=== PATIENT | male | born 1930 | race Caucasian/White ===

== ENCOUNTER 2019-03-31 09:11 | Inpatient (IN) ==
[2019-03-31] MEDS ORDERED: Ipratropium/Albuterol Neb 3 ML IH ONE (09:35)
[2019-03-31] MEDS ORDERED: methylPREDNISolone 125 MG/2 ML VIAL IVP ONE (09:35)
--- NOTE | 2019-03-31 09:37 | Emergency Department Note ---
Disposition Clinical Impression: Hypo-osmolality and hyponatremia, Lung mass Dyspnea Qualifiers: Dyspnea type: shortness of breath Qualified Code(s): R06.02 - Shortness of breath Disposition: Admitted As Inpatient Condition: Fair Referrals: Leonid Hernandez DO [Primary Care Provider] - Forms: ED Satisfaction Letter Time of Disposition: 11:55 General Adult HPI - General Chief complaint: ED Upper Respiratory Infection Stated complaint: Cough,Black spot on lung Time Seen by Provider: 03/31/19 09:20 Source: patient, family Mode of arrival: private vehicle Limitations: no limitations Nursing Notes Reviewed: Yes Vital Signs Reviewed: Yes - History of Present Illness HPI Narrative: 80-year-old male with past medical history of cardiac stenting, hypertension with a couple week history of a cough, worsening over the last 3 days with sputum production that is yellow to green to black. Son at bedside reports that he always has a bit of a cough but it seems like its getting worse over the last couple of days. Patient and family were seen at an outside facility yesterday where he had an x-ray and staff there explained that he had a spot on his lawn and they wanted to send him to [place]. Patient refused to be transferred and son is bringing him here this morning for further workup. Patient is denying fevers or chills, he does report a remote history of smoking approximately 40 years ago but none since then. Patient complains of some shortness of breath. He specifically denies chest pain. He is on Plavix due to the stents. Pt denies any recent weight changes, night sweats. Pain Scale: 0 - Related Data Allergies Allergy/AdvReac Type Severity Reaction Status Date / Time No Known Allergies Allergy Verified 03/31/19 09:23 Review of Systems: All systems ED: reviewed and negative except as stated. Constitutional: Denies: fever, chills ENT ED: Denies: ear pain, throat pain Cardiovascular: Denies: chest pain, palpitations Respiratory: Reports: cough, dyspnea, increased sputum production Gastrointestinal: Denies: abdominal pain, nausea, vomiting, diarrhea, constipation Genitourinary: Denies: urgency, dysuria, frequency Musculoskeletal: Denies: back pain, neck pain Integumentary: Denies: rash, abrasion Neurological: Denies: headache, weakness, numbness, paresthesias Psychiatric: Denies: anxiety, depression Endocrine: Denies: fatigue, heat or cold intolerance Hematological/Lymphatic: Denies: easy bleeding, easy bruising Allergic/Immunologic: Denies: facial swelling, urticaria Past Medical History - Past Medical History Attestation: Yes The following information was validated with the patient. Medical history: Reports: coronary artery disease, hyperlipidemia, hypertension, myocardial infarction Psychiatric history: Reports: anxiety - Social History Smoking Status: Former smoker Alcohol use: Reports: none Drug use: Reports: none Physical Exam General: No acute distress. Well developed, well nourished. Head: atraumatic, normocephalic. ENT: No conjunctival injection, no scleral icterus. PERRLA. EOMI. Oropharynx non- erythematous. mucous membranes moist. Neuro: No focal deficits, no speech deficit, no facial droop, mentating well. BUE/BLE Str 5/5. Pulm: Diffuse wheezes, bibasilar rales, ronchi in RLL. Thick, green sputum produced while clinician was in the room, no blood noted. Cardio: Distant heart sounds. Chest not tender to palpation. Abd: Soft, non-distended. Normoactive bowel sounds. Non-tender to palpation. No guarding. Non rigid. Extremities: Radial pulses 2+ mirna, dorsalis pedis/posterior tibialis 2+ mirna. 1+ mirna LE edema. No cyanosis, clubbing. Skin: warm, dry, intact. No rashes. Psych: Appropriate mood and affect. Answers questions appropriately. Cooperative with exam. - General Limitations: no limitations General appearance: alert, in no apparent distress Course Course Narrative: Ddx includes but is not limited to: PNA, Workup will include: CXR, EKG, CBC, BMP, Lactic, Blood cultures, Troponin, breathing treatments. Will request records from OSH. Suspect admit. Vital Signs Temperature 97.9 F 03/31/19 09:19 Pulse Rate 81 03/31/19 09:19 Respiratory Rate 18 03/31/19 09:19 Blood Pressure 103/56 03/31/19 09:19 O2 Sat by Pulse Oximetry 93 03/31/19 09:19 Temperature 97.9 F 03/31/19 09:19 Pulse Rate 90 03/31/19 12:12 Respiratory Rate 18 03/31/19 12:12 Blood Pressure 90/70 03/31/19 12:12 O2 Sat by Pulse Oximetry 95 03/31/19 12:12 Oxygen Delivery Oxygen Delivery Nasal Cannula Medical Decision Making - MDM Narrative Medical decision making narrative: Pts records from OSH show spiculated mass in the lingula with concern for bronchogenic carcinoma along with enhacing lymph nodes concerning for reactivity or metastasis. With hyponatremia and hypoosmolality there is concern for either legionella or SIADH. Pt was saturating in low 90s on room air and is not on oxygen at home. He would benefit from further inpatient workup and treatment. Spoke with family and pt at bedside and shared labs and imaging results. Admitted pt to hospitalist, Dr. Armendariz, who agreed to accept the pt to his service. Patient was given an opportunity to ask questions at bedside and all of their concerns were addressed. Patient verbalized understanding and agreement with plan of care. Pt remained stable while in the department. - Medical Records Medical records reviewed: Yes I reviewed the patient's medical records. - Lab Data Lab results reviewed: Yes I reviewed the patient's lab results. Result diagrams: 03/31/19 09:48 03/31/19 09:48 Lab Results 03/31/19 03/31/19 03/31/19 Range/Units 09:48 09:48 09:48 WBC 9.2 (4.3-11.1) K/mcL RBC 4.61 (4.19-5.50) M/mcL Hgb 14.0 (12.9-16.9) g/dL Hct 40.6 (37.5-50.1) % MCV 88.1 (83.0-100.0) fL MCH 30.4 (28.0-33.3) pg MCHC 34.5 (31.6-35.5) g/dL RDW 13.7 (11.5-14.5) % Plt Count 138 L (140-400) K/mcL MPV 9.6 (9.4-12.4) fL Immature Gran % 0.5 (0-4) % Seg Neutrophils % 75.7 % Lymphocytes % 9.5 % Monocytes % 13.3 % Eosinophils % 0.8 % Basophils % 0.2 % Neutrophils # 7.0 (1.6-8.9) K/mcL Lymphocytes # 0.9 (0.6-4.6) K/mcL Monocytes # 1.2 (0.0-1.3) K/mcL Eosinophils # 0.1 (0.0-0.6) K/mcL Basophils # 0.0 (0.0-0.2) K/mcL Sodium 125 L (136-145) mEq/L Potassium 3.7 (3.5-5.1) mEq/L Chloride 95 L (98-107) mEq/L Carbon Dioxide 22 L (23-29) mEq/L BUN 21 (8-23) mg/dL Creatinine 1.02 (0.70-1.30) mg/dL Est GFR ( Amer) > 60 (> 60) Est GFR (Non-Af Amer) > 60 (> 60) BUN/Creatinine Ratio 21 (6-26) Glucose 112 H (70-105) mg/dL Calculated Osmolality 264 L (280-300) Lactic Acid 1.0 (0.5-2.2) mmol/L Calcium 8.8 (8.6-10.3) mg/dL Troponin I < 0.03 (< 0.04) ng/mL B-Natriuretic Peptide (Less than 100) pg/mL 03/31/19 Range/Units 09:48 WBC (4.3-11.1) K/mcL RBC (4.19-5.50) M/mcL Hgb (12.9-16.9) g/dL Hct (37.5-50.1) % MCV (83.0-100.0) fL MCH (28.0-33.3) pg MCHC (31.6-35.5) g/dL RDW (11.5-14.5) % Plt Count (140-400) K/mcL MPV (9.4-12.4) fL Immature Gran % (0-4) % Seg Neutrophils % % Lymphocytes % % Monocytes % % Eosinophils % % Basophils % % Neutrophils # (1.6-8.9) K/mcL Lymphocytes # (0.6-4.6) K/mcL Monocytes # (0.0-1.3) K/mcL Eosinophils # (0.0-0.6) K/mcL Basophils # (0.0-0.2) K/mcL Sodium (136-145) mEq/L Potassium (3.5-5.1) mEq/L Chloride (98-107) mEq/L Carbon Dioxide (23-29) mEq/L BUN (8-23) mg/dL Creatinine (0.70-1.30) mg/dL Est GFR ( Amer) (> 60) Est GFR (Non-Af Amer) (> 60) BUN/Creatinine Ratio (6-26) Glucose (70-105) mg/dL Calculated Osmolality (280-300) Lactic Acid (0.5-2.2) mmol/L Calcium (8.6-10.3) mg/dL Troponin I (< 0.04) ng/mL B-Natriuretic Peptide 137 H (Less than 100) pg/mL - Radiology Data Radiology results reviewed: Yes I reviewed the patient's radiology results. Chest X-Ray 03/31/19 09:35 IMPRESSION: Low lung volumes with bibasilar airspace opacities, either due to atelectasis or mild/early pneumonia. D/ / Eduardo Villanueva MD / Eduardo Villanueva MD Interpreting Provider: Eduardo Villanueva MD - EKG Data EKG #1 EKG attestation: Yes I reviewed and interpreted this EKG. EKG results narrative: HR 70, rhythm sinus, axis normal. CA 203 and prolonged, QRS 132 and prolonged, QTc 428. No ST elevation. Attestation Statement - Attestation Attestation: I, Mohsen Ellsworth, examined this patient and my medical decision-making was reviewed with the MOTION PICTURE PROJECTIONIST APPRENTICE/PA/Advanced Practice Nurse/Resident Physician. I agree with the documented findings, disposition and treatment plan as described except to the extent set forth below. 88-year-old male presents emergency department for evaluation of cough and "spot on his lungs". Patient states that he was evaluated [facility] yesterday for similar symptoms, he was diagnosed with likely lung cancer after a CT of his chest. He was offered admission at [facility], transferred to [facility], or outpatient follow-up with oncology. Patient left the emergency department and is now back for reevaluation. No history of previous lung cancer. He describes a cough that is productive of yellow-green sputum. Chest x-ray today shows que stion of lung scarring versus early pneumonia. Patient is afebrile. He is hyponatremic. He is unsure if he had fevers over the past few days. We spoke with the oncologist who agreed with the plan for admission to the hospital for biopsy as well as treatment of possible early pneumonia. Will also require further evaluation of his hypernatremia.
[2019-03-31 10:22] LABS: BUN/Creatinine Ratio 21 (6-26); Blood Urea Nitrogen 21 mg/dL (8-23); Calcium 8.8 mg/dL (8.6-10.3); Carbon Dioxide 22 mEq/L (23-29); Chloride 95 mEq/L (98-107); Glucose 112 mg/dL (70-105); Osmolality,Calculated 264 (280-300); Potassium 3.7 mEq/L (3.5-5.1); Sodium 125 mEq/L (136-145); Troponin I < 0.03 ng/mL (< 0.04); eGFR For Non-African Americans > 60 (> 60)
[2019-03-31 10:24] LABS: Basophils % 0.2 %; Eosinophils # 0.1 K/mcL (0.0-0.6); Eosinophils % 0.8 %; Hematocrit 40.6 % (37.5-50.1); Immature Granulocytes % 0.5 % (0-4); Lymphocytes # 0.9 K/mcL (0.6-4.6); Lymphocytes % 9.5 %; Mean Corpuscular HGB Conc 34.5 g/dL (31.6-35.5); Mean Corpuscular Hemoglobin 30.4 pg (28.0-33.3); Mean Corpuscular Volume 88.1 fL (83.0-100.0); Mean Platelet Volume 9.6 fL (9.4-12.4); Monocytes # 1.2 K/mcL (0.0-1.3); Monocytes % 13.3 %; Platelet Count 138 K/mcL (140-400); Red Blood Count 4.61 M/mcL (4.19-5.50); Red Cell Distribution Width 13.7 % (11.5-14.5); Segmented Neutrophils % 75.7 %
[2019-03-31] MEDS ORDERED: Naloxone 0.4 MG/ML INJ IVP PRN (11:52)
[2019-03-31] MEDS: Azithromycin 500 MG in D5% in Water 250 ML IVPB SCH (12:13)
[2019-03-31] MEDS: cefTRIAXone 1,000 MG in Water for inj. (sterile) 20 ML 10 ML IVP SCH (12:13)
--- NOTE | 2019-03-31 12:36 | Internal Med History&Physical ---
Date of Encounter: 03/31/19 Time of Encounter: 12:00 Internal Medicine - H&P: HPI Chief complaint: Coughing for a couple of days History of present illness: Mr. Butterfield is a 88 year old male with pmh of hypertension, coronary artery disease, hyperlipidemia presenting with complaints of persistent coughing with phlegm production of about 3-4 days duration. He denies any sick contacts, just says he has been coughing persistently with no relief. Cough is productive of gr een phlegm. Admits to smoking a long time ago but denies any diagnosis of COPD. He denies any wheezing as well. He denies any fevrs, chills or any other acute symptoms. He went to the ER at [facility] where they did a CT scan reportedly suggestive of a lung mass and pneumonia. Says he was supposed to be transferred to [place] but wanted to come here In the ER,, a chest xray showed early pneumonia and he was started on azithromycin and he is being admitted for further management Past Med Surg Social Fam HX - Past Medical History Medical history: coronary artery disease, hyperlipidemia, hypertension, myocardial infarction Psychiatric history: anxiety - Past Surgical History Additional surgical history: Heart Stents - Social History Smoking Status: Former smoker Alcohol use: none Drug use: none Internal Medicine - H&P: Meds Allergy/AdvReac Type Severity Reaction Status Date / Time No Known Allergies Allergy Verified 03/31/19 09:23 All Systems PM: A 10-system review of systems was performed and is negative for pertinent findings except as documented above in the HPI. - Constitutional Constitutional: no chills, no fever(s), no night sweats - EENT Eyes: no change in vision, no discharge, no pain, no photophobia Ears: no ear discharge, no ear pain, no tinnitus Nose, mouth and throat: no dysphagia, no nasal discharge, no neck pain, no sore throat - Cardiovascular Cardiovascular ROS IM: no chest pain, no diaphoresis, no dyspnea, no lightheadedness, no palpitations, no syncope - Respiratory Respiratory: cough, no dyspnea, no wheezing, no excessive phlegm production - Gastrointestinal Gastrointestinal: no abdominal pain, no diarrhea, no hematemesis, no hematochezia, no melena, no nausea, no vomiting - Musculoskeletal Musculoskeletal ROS IM: no numbness, no tingling - Integumentary Integumentary IM: no rash, no unusual bruising - Neurological Neurological ROS: no confusion, no convulsions, no focal weakness, no numbness, no tingling, no tremor(s) - Hematologic/Lymphatic Hematologic/Lymphatic: no easy bruising - Constitutional Vitals: Temp Pulse Resp BP Pulse Ox 97.9 F 90 18 90/70 95 03/31/19 09:19 03/31/19 12:12 03/31/19 12:12 03/31/19 12:12 03/31/19 12:12 Exam: NAD - Head Head exam: Present: atraumatic, normocephalic - Eye Eye exam: Present: PERRL, conjuntiva pink, sclera anicteric Pupils: Present: PERRL - Neck Neck exam general surgery: Present: supple, trachea midline. Absent: lymphadenopathy - Respiratory Respiratory exam: Present: CTAB. Absent: accessory muscle use, rales, rhonchi, wheezes - Cardiovascular Cardiovascular exam: Present: RRR, +S1, +S2. Absent: diastolic murmur, gallop, rubs, systolic murmur - GI/Abdominal GI/Abdominal exam: Present: normal bowel sounds, soft, no peritoneal signs. Absent: distended, tenderness - Extremities Exam Extremities exam: Present: warm, radial pulses palpable and symmetrical. Absent: calf tenderness, cyanotic, pedal edema - Neurological Exam Neurological exam: Present: CN II-XII intact, oriented X3, no focal deficits. Absent: pronater drift, facial droop, speech deficit - Skin Skin exam: Present: dry, intact Internal Med - H&P Results - Labs CBC & Chem 7: 03/31/19 09:48 03/31/19 09:48 Labs: Short CBC 03/31/19 Range/Units 09:48 WBC 9.2 (4.3-11.1) K/mcL Hgb 14.0 (12.9-16.9) g/dL Hct 40.6 (37.5-50.1) % Plt Count 138 L (140-400) K/mcL Neutrophils # 7.0 (1.6-8.9) K/mcL BMP 03/31/19 09:48 Sodium 125 L Potassium 3.7 Chloride 95 L Carbon Dioxide 22 L BUN 21 Creatinine 1.02 Glucose 112 H Calcium 8.8 Cardiac Enzymes 03/31/19 Range/Units 09:48 Troponin I < 0.03 (< 0.04) ng/mL - Impressions ITS Impressions Chest X-Ray 03/31/19 09:35 IMPRESSION: Low lung volumes with bibasilar airspace opacities, either due to atelectasis or mild/early pneumonia. D/ / Eduardo Villanueva MD / Eduardo Villanueva MD Interpreting Provider: Eduardo Villanueva MD - Assessment and Plan (1) Community acquired pneumonia Current Visit: Yes Status: Acute Assessment and plan: Pt comes in with coughing productive of green phlegm, no discernible wheezes and cxr suggestive of pneumonia Also hyponatremic. denies any exposure to hot tubs. Will obtain blood cultures, urine legionella and streptooccal antigen Start on ceftriaxone and azithromycin Qualifiers: Qualified Code(s): J18.9 - Pneumonia, unspecified organism (2) Hypo-osmolality and hyponatremia Current Visit: Yes Status: Acute Assessment and plan: Possibly secondary to pneumonia vs dehydration vs lung mass CT chest from [facility] showed lung mass, legionella pneumonia is also a possiblilty Start on normal saline and monitor BMP (3) Lung mass Current Visit: Yes Status: Acute Assessment and plan: Possible etiology for coughing and hyponatremia. Obtain urine studies Oncology consulted from ER (4) Coronary artery disease Current Visit: Yes Status: Acute Assessment and plan: Continue plavix and statin Qualifiers: Qualified Code(s): I25.10 - Atherosclerotic heart disease of [place] coronary artery without angina pectoris (5) Hypertension Current Visit: Yes Status: Acute Assessment and plan: Borderline hypotensive. Hold BP meds Qualifiers: Qualified Code(s): I10 - Essential (primary) hypertension (6) DVT prophylaxis Current Visit: Yes Status: Acute Assessment and plan: heparin sc - Time Spent With Patient Total time spent is greater than 50% in coordination of care (as documented) at patient's floor/unit and/or counseling patient:
[2019-03-31] MEDS ORDERED: GuaiFENesin Liq 200 MG/10 ML UDC PO PRN (12:39)
--- NOTE | 2019-03-31 14:55 | Oncology Inp Consult Note ---
<Mamie King L - Last Filed: 03/31/19 16:17> Date of Encounter: 03/31/19 Time of Encounter: 14:30 Assessment and Plan (1) Hypo-osmolality and hyponatremia Status: Acute Assessment and plan: Secondary to chlorthalidone (listed on home meds) vs. hypovolemic hyponatremia vs. SIADH vs. other or multifactorial Appears somewhat chronic dating back to labs from 2014 Renal function/glucose normal Plan: Awaiting Urine Na and Urine osm Added TSH IVF ordered If he has labs concerning for SIADH would recommend fluid restriction, awaiting results (2) Lung mass Status: Acute Assessment and plan: CT of the chest without contrast at [facility] revealed 1.5 cm spiculated mass laterally within the lingula and several subcentimeter mediastinal lymph nodes in addition to a 1.1 x 1.6 cm subcarinal lymph node. Plan: Hold Plavix in anticipation for biopsy-plavix will need to be held x5 days (last dose 03/30/2019), patient would not necessarily need to be inpatient while awaiting on biopsy, will discuss with Dr. Espinal/Pulmonology and may help to arrange for outpatient bx once symptoms controlled and dependent upon hospital course [facility] CT chest/abdomen/pelvis with IV contrast (3) DVT prophylaxis Status: Acute Assessment and plan: Heparin SQ - Data of Consult Patient: new to practice Consult date: 03/31/19 Requesting Physician: Olivia Sosa Primary Care Provider: Leonid Hernandez - Consult Narrative Reason for consult: Spiculated lingular mass History of present illness: Mr. Butterfield is an 88 year old male with past medical history significant for hypertension, coronary artery disease, [place] x20 years ago, coronary stent placement ~4-5 years ago, hyperlipidemia who presented for persistent productive cough for 3-4 days. He presented to [place] ER yesterday and CT of the chest without contrast revealed 1.5 cm spiculated mass laterally within the lingula and several subcentimeter mediastinal lymph nodes in addition to a 1.1 x 1.6 cm subcarinal lymph node. They recommended transfer to [facility] for further workup vs. outpatient workup and he declined transfer. Patient presents to ER today for further evaluation. Patient states he has had persistent cough with green phlegm. He looks to his son for the answer of most questions. Patient does endorse chronic SOB, patients son states he has noticed patient become increasingly SOB above baseline. He is wearing O2 nasal cannula and does not require O2 at home. He denies hemoptysis, fevers/chills, headache, dizziness, visual changes, chest pain or pain with inspiration, abdominal pain, nausea, vomiting, bowel habit changes, back pain or focal weakness. Chronic difficulty with urination that is unchanged. He reports increase in generalized weakness and decreased activity. He lives in [place] with his son. He is a retired semi-driver trainer. Quit smoking 40 years ago, he had smoked for ~30 years average of 1 PPD. Denies weight loss or appetite changes. Past Med Surg Social Fam HX - Past Medical History Medical history: coronary artery disease, hyperlipidemia, hypertension, myocardial infarction Psychiatric history: anxiety - Past Surgical History Additional surgical history: Heart Stents - Social History Smoking Status: Former smoker Alcohol use: none Drug use: none Medications and Allergies Atorvastatin [Lipitor] 40 mg PO QPM 03/31/19 [History] Chlorthalidone 25 mg PO DAILY 03/31/19 [History] Clopidogrel [Plavix] 75 mg PO DAILY 03/31/19 [History] Finasteride [Proscar] 5 mg PO DAILY 03/31/19 [History] Isosorbide MONOnitrate (24 HR) [Imdur] 30 mg PO QAM 03/31/19 [History] LORazepam [Ativan] 1 mg PO BID PRN 03/31/19 [History] Levothyroxine Sodium 88 mcg PO QAM 03/31/19 [History] Lisinopril [Zestril] 5 mg PO DAILY 03/31/19 [History] Metoprolol Succinate [Toprol Xl] 12.5 mg PO DAILY 03/31/19 [History] Mirtazapine [Remeron] 15 mg PO DAILY 03/31/19 [History] Tamsulosin [Flomax] 0.4 mg PO DAILY 03/31/19 [History] Allergy/AdvReac Type Severity Reaction Status Date / Time No Known Allergies Allergy Verified 03/31/19 14:13 Constitutional: Present: fatigue. Absent: anorexia, chills, fever(s), frequent falls, headache(s), night sweats, weakness, weight loss Eyes: Absent: blurry vision, change in vision Nose, mouth and throat: Absent: dysphagia, odynophagia Cardiovascular: Absent: chest pain Respiratory: Present: cough, dyspnea. Absent: hemoptysis, wheezing, pain on inspiration, pain with cough Gastrointestinal: Absent: abdominal pain, change in bowel habits, hematochezia, melena, nausea, vomiting Genitourinary: Present: as per HPI, dysuria, urinary hesitancy Musculoskeletal: Present: muscle weakness Integumentary: Absent: rash, wounds Neurological: Absent: dizziness, focal weakness Psychiatric: Present: as per HPI Hematologic/Lymphatic: Present: as per HPI Oncology - Exam - Constitutional General appearance: average body habitus, cooperative, no acute distress, no febrile - Head Head exam: Present: atraumatic - ENT ENT exam: Present: mucous membranes moist, normal oropharynx - Respiratory Respiratory exam: Present: decreased breath sounds. Absent: respiratory distress - Cardiovascular Cardiovascular exam: Present: RRR - GI/Abdominal GI/Abdominal exam: Present: normal bowel sounds, soft. Absent: tenderness - Extremities Exam Extremities exam: Present: normal inspection. Absent: calf tenderness - Neurological Exam Neurological exam: Present: alert, oriented X3, no focal deficits, strengths eq ual and symetr throughout - Psychiatric Psychiatric exam: Present: normal affect, normal mood - Skin Skin exam: Present: dry, intact, normal color, warm Consult Discharge Plan - Plan Referrals: Leonid Hernandez DO [Primary Care Provider] - Inpatient Charges Provider: Dr. Yanick Almanzar <Madelin Almanzar - Last Filed: 03/31/19 17:06> Date of Encounter: 03/31/19 - Data of Consult Requesting Physician: Olivia Sosa Primary Care Provider: Leonid Hernandez - Attending Attestation Patient with hx of wt loss, cough (4 wks), generalized wkness, cr constipation, imaging completed outside showed spiculated lung nodule, mediastinal adenopathy, worrisome for malignancy. Labs significant for hyponatremia/?SIADH. Work up in progress. Will obtain contrasted imaging chest/abdpelvis. Biopsy to be arranged after imaging-patient is on plavix currently. Plan reviewed with patient and son bedside I examined this patient and my medical decision-making was reviewed with the Advanced Practice Nurse, Mamie King. I agree with the documented findings, disposition and treatment plan as described except to the extent set forth below. Inpatient Charges Provider: Dr. Yanick Almanzar Consult - Inpatient: [id number]
[2019-03-31] MEDS ORDERED: Isovue-370 500 ML BOTTLE IVP ONE (15:50)
[2019-03-31] MEDS: *HR* Heparin 5,000 UNIT/ML VIAL SQ SCH (16:56)
[2019-03-31 23:16] LABS: Bilirubin,Urine Negative (Negative); Blood,Urine Negative (Negative); Clarity,Urine Clear (Clear); Color,Urine Yellow (Yellow); Glucose,Urine (UA) 100 mg/dL (Normal); Ketones,Urine Negative (Negative); Leukocyte Esterase,Urine Negative (Negative); Nitrite,Urine Negative (Negative); Protein,Urine Negative (Neg-Trace); Specific Gravity,Urine 1.024 (1.010-1.025); Urobilinogen,Urine Normal (Normal)
[2019-04-01] MEDS: *HR* Heparin 5,000 UNIT/ML VIAL SQ SCH ×2 (05:52→18:12)
[2019-04-01 06:31] LABS: Basophils % 0.2 %; Hematocrit 46.7 % (37.5-50.1); Immature Granulocytes % 0.5 % (0-4); Lymphocytes # 0.8 K/mcL (0.6-4.6); Lymphocytes % 5.3 %; Mean Corpuscular HGB Conc 34.5 g/dL (31.6-35.5); Mean Corpuscular Hemoglobin 30.7 pg (28.0-33.3); Mean Corpuscular Volume 89.1 fL (83.0-100.0); Mean Platelet Volume 10.2 fL (9.4-12.4); Monocytes % 6.4 %; Platelet Count 182 K/mcL (140-400); Red Blood Count 5.24 M/mcL (4.19-5.50); Red Cell Distribution Width 13.7 % (11.5-14.5); Segmented Neutrophils % 87.6 %
[2019-04-01 06:46] LABS: Hemoglobin 16.1 g/dL (12.9-16.9); Neutrophils # 13.6 K/mcL (1.6-8.9)
[2019-04-01 08:29] LABS: BUN/Creatinine Ratio 24 (6-26); Blood Urea Nitrogen 21 mg/dL (8-23); Calcium 9.2 mg/dL (8.6-10.3); Carbon Dioxide 21 mEq/L (23-29); Chloride 93 mEq/L (98-107); Glucose 117 mg/dL (70-105); Magnesium 1.9 mg/dL (1.6-2.6); Osmolality,Calculated 266 (280-300); Phosphorous 3.1 mg/dL (2.7-4.5); Potassium 3.8 mEq/L (3.5-5.1); Sodium 126 mEq/L (136-145); eGFR For Non-African Americans > 60 (> 60)
[2019-04-01] MEDS: cefTRIAXone 1,000 MG in Water for inj. (sterile) 20 ML 10 ML IVP SCH (09:54)
--- NOTE | 2019-04-01 11:29 | Electrocardiograph Report ---
[address] [address] Test Date: 2019-03-31 Pat Name: Odilon Butterfield Department: EXAM9 Room: 2NE26 Gender: M Roof Service Technician: : 1930 Requested By: Leah Arrieta Order Number: [id number] Reading MD: Leonid Henderson Measurements Intervals Sinclair Rate: 70 P: 54 PA: 203 QRS: 17 QRSD: 132 T: -24 QT: 396 QTc: 428 Interpretive Statements Sinus rhythm ivcd Electronically Signed On 04-01-2019 11:27:39 EDT by Leonid Henderson
[2019-04-01] MEDS: Azithromycin 500 MG in D5% in Water 250 ML IVPB SCH (13:02)
--- NOTE | 2019-04-01 14:23 | Oncology Inp Progress Note ---
Date of Encounter: 04/01/19 Time of Encounter: 13:45 (1) Hypo-osmolality and hyponatremia Current Visit: Yes Status: Acute Assessment and plan: Secondary to chlorthalidone (listed on home meds) vs. hypovolemic hyponatremia vs. SIADH vs. other or multifactorial Appears somewhat chronic dating back to labs from 2014 Renal function/glucose/TSH normal Plan: Na 126 today (125 yesterday) Check AM cortisol Following NS ordered per hospitalist If he has labs concerning for SIADH would recommend fluid restriction, awaiting results (2) Lung mass Current Visit: Yes Status: Acute Assessment and plan: CT of the chest without contrast at [place] revealed 1.5 cm spiculated mass laterally within the lingula and several subcentimeter mediastinal lymph nodes in addition to a 1.1 x 1.6 cm subcarinal lymph node. CT of the chest/abdomen/pelvis with IV contrast reveals Spiculated 18 mm nodule lingula left upper lobe almost certainly reflects primary bronchogenic carcinoma. Plan: Hold Plavix in anticipation for biopsy-plavix will need to be held x5 days for bronchoscopy with LN/lung biopsy (last dose 03/30/2019), patient would not necessarily need to be inpatient while awaiting on biopsy, will discuss with Dr. Espinal/Pulmonology and may help to arrange for outpatient bx once symptoms controlled and dependent upon hospital course Patient will need outpatient appointments arranged (3) DVT prophylaxis Current Visit: Yes Status: Acute Assessment and plan: Heparin SQ Oncology: Subj Interval history: Patient getting OOB with assistance to bathroom. Denies pain. Cough and SOB somewhat improved. continues to feel weak overall. Afebrile. O2 saturations adequate on room air. 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 Started colace for chronic constipation. - Constitutional General appearance: cooperative, no acute distress, no febrile - Head Head exam: Present: atraumatic - ENT ENT exam: Present: mucous membranes moist, normal oropharynx - Respiratory Respiratory exam: Present: decreased breath sounds. Absent: respiratory distress - Cardiovascular Cardiovascular exam: Present: RRR - GI/Abdominal GI/Abdominal exam: Present: normal bowel sounds, soft. Absent: tenderness - Extremities Exam Extremities exam: Present: normal inspection. Absent: calf tenderness - Neurological Exam Neurological exam: Present: alert, oriented X3, no focal deficits, strengths equal and symetr throughout - Psychiatric Psychiatric exam: Present: normal affect, normal mood - Skin Skin exam: Present: dry, intact, normal color, warm Oncology: Obj Data - Labs CBC & Chem 7: 04/01/19 05:39 04/01/19 05:39 Consult Discharge Plan - Plan Referrals: Leonid Hernandez DO [Primary Care Provider] - Inpatient Charges Provider: Mamie Seth CNP Follow up - Inpatient: [id number]
--- NOTE | 2019-04-01 15:55 | Internal Med Progress Note ---
Hospitalist Progress Note - Encounter Date of Encounter: 04/01/19 Time of Encounter: 15:51 - Subjective Interval History: Pt denies chest pain or SOB. He does report having some RUQ pain only when he coughs. He denies fever, chills, N/V or diarrhea. - Exam Vitals: Temp Pulse Resp BP Pulse Ox 97.6 F 75 14 106/62 94 04/01/19 11:01 04/01/19 11:01 04/01/19 11:01 04/01/19 11:01 04/01/19 11:01 Exam: Exam: NAD Head exam: Present: atraumatic, normocephalic Eye exam: Present: PERRL, conjuntiva pink, sclera anicteric Pupils: Present: PERRLA Neck exam general surgery: Present: supple, trachea midline. Absent: lymphadenopathy Respiratory exam: Present: CTAB. Absent: accessory muscle use, rales, rhonchi, wheezes Cardiovascular exam: Present: RRR, +S1, +S2. Absent: diastolic murmur, gallop, rubs, systolic murmur GI/Abdominal exam: Present: normal bowel sounds, soft, no peritoneal signs. Absent: distended, tenderness Extremities exam: Present: warm, radial pulses palpable and symmetrical. Absent: calf tenderness, cyanotic, pedal edema Neurological exam: Present: CN II-XII intact, oriented X3, no focal deficits. Absent: pronater drift, facial droop, speech deficit Skin exam: Present: dry, intact - Assessment and Plan (1) Community acquired pneumonia Current Visit: Yes Status: Acute Assessment and Plan: Pt comes in with coughing productive of green phlegm, no discernible wheezes and cxr suggestive of pneumonia Also hyponatremic. denies any exposure to hot tubs. Will obtain blood cultures, urine legionella and streptooccal antigen Continue on ceftriaxone and azithromycin (2) Lung mass Current Visit: Yes Status: Acute Assessment and Plan: Possible etiology for coughing and hyponatremia. Na studies Oncology consulting, and states bx can be done out pt (3) Hypo-osmolality and hyponatremia Current Visit: Yes Status: Acute Assessment and Plan: Possibly secondary to pneumonia vs dehydration vs lung mass CT chest from [facility] showed lung mass, legionella pneumonia is also a possiblilty On Zithromax and Rocephin. Will check sodium studies. (4) Coronary artery disease Current Visit: Yes Status: Acute Assessment and Plan: Continue plavix and statin (5) Hypertension Current Visit: Yes Status: Acute Assessment and Plan: Borderline hypotensive on admission so holding home dose metoprolol and imdur. Hold BP meds DVT Prophylaxis: heparin sc - Time Spent with Patient Total time spent is greater than 50% in coordination of care (as documented) at patient's floor/unit and/or counseling patient: less than 15 minutes Plan of Care Discussed with: patient Internal Medicine: Result - Labs CBC & Chem 7: 04/01/19 05:39 04/01/19 05:39 Labs: Short CBC 04/01/19 Range/Units 05:39 WBC 15.5 H D (4.3-11.1) K/mcL Hgb 16.1 D (12.9-16.9) g/dL Hct 46.7 (37.5-50.1) % Plt Count 182 (140-400) K/mcL Neutrophils # 13.6 H (1.6-8.9) K/mcL BMP 04/01/19 05:39 Sodium 126 L Potassium 3.8 Chloride 93 L Carbon Dioxide 21 L BUN 21 Creatinine 0.88 Glucose 117 H Calcium 9.2 Urine 03/31/19 Range/Units 22:27 Urine Color Yellow (Yellow) Urine Clarity Clear (Clear) Urine pH 6.0 (5.0-8.0) pH Units Ur Specific [place] 1.024 (1.010-1.025) Urine Protein Negative (Neg-Trace) mg/dL Urine Glucose (UA) 100 H (Normal) mg/dL - Impressions Impressions Abdomen/Pelvis CT 03/31/19 15:50 IMPRESSION: 1. Spiculated 18 mm nodule lingula left upper lobe almost certainly reflects primary bronchogenic carcinoma. Percutaneous biopsy versus PET-CT correlation recommended. 2. Emphysema. 3. Chronic pulmonary scarring with areas of bronchiectasis right posterior parahilar lung and both lung bases, right greater than left. 4. 3.3 cm AAA -- recommend follow-up every 3 years. {Reference: J Vasc Surg 2009 Oct;50(4 Suppl):S2-49.} 5. Calcific atherosclerosis aorta. 6. Diverticulosis coli without CT evidence of acute diverticulitis. D/ / Xu Ruiz / Xu Ruiz Interpreting Provider: Xu Ruiz Chest CT 03/31/19 15:50 IMPRESSION: 1. Spiculated 18 mm nodule lingula left upper lobe almost certainly reflects primary bronchogenic carcinoma. Percutaneous biopsy versus PET-CT correlation recommended. 2. Emphysema. 3. Chronic pulmonary scarring with areas of bronchiectasis right posterior parahilar lung and both lung bases, right greater than left. 4. 3.3 cm AAA -- recommend follow-up every 3 years. {Reference: J Vasc Surg 2009 Aug;50(4 Suppl):S2-49.} 5. Calcific atherosclerosis aorta. 6. Diverticulosis coli without CT evidence of acute diverticulitis. D/ / Xu Ruiz / Xu Ruiz Interpreting Provider: Xu Ruiz Consult Discharge Plan - Plan Referrals: Leonid Hernandez DO [Primary Care Provider] - _ (1) Community acquired pneumonia Qualifiers: Qualified Code(s): J18.9 - Pneumonia, unspecified organism (4) Coronary artery disease Qualifiers: Qualified Code(s): I25.10 - Atherosclerotic heart disease of [place] coronary artery without angina pectoris (5) Hypertension Qualifiers: Qualified Code(s): I10 - Essential (primary) hypertension
[2019-04-02] MEDS: *HR* Heparin 5,000 UNIT/ML VIAL SQ SCH (06:39)
[2019-04-02] MEDS: cefTRIAXone 1,000 MG in Water for inj. (sterile) 20 ML 10 ML IVP SCH (09:21)
[2019-04-02] MEDS: Azithromycin 500 MG in D5% in Water 250 ML IVPB SCH (12:17)
--- NOTE | 2019-04-02 13:20 | Internal Med Progress Note ---
Hospitalist Progress Note - Encounter Date of Encounter: 04/02/19 Time of Encounter: 13:20 - Exam Vitals: Temp Pulse Resp BP Pulse Ox 98.1 F 89 16 103/62 95 04/02/19 11:05 04/02/19 11:05 04/02/19 11:05 04/02/19 11:05 04/02/19 08:03 - Assessment and Plan (1) Hypo-osmolality and hyponatremia Current Visit: Yes Status: Acute (2) Lung mass Current Visit: Yes Status: Acute (3) Community acquired pneumonia Current Visit: Yes Status: Acute (4) Coronary artery disease Current Visit: Yes Status: Acute (5) Hypertension Current Visit: Yes Status: Acute - Time Spent with Patient Total time spent is greater than 50% in coordination of care (as documented) at patient's floor/unit and/or counseling patient: Internal Medicine: Result - Labs CBC & Chem 7: 04/01/19 05:39 04/02/19 04:18 Labs: BMP 04/02/19 04:18 Sodium 130 L Consult Discharge Plan - Plan Referrals: Leonid Hernandez DO [Primary Care Provider] - (3) Community acquired pneumonia Qualifiers: Qualified Code(s): J18.9 - Pneumonia, unspecified organism (4) Coronary artery disease Qualifiers: Qualified Code(s): I25.10 - Atherosclerotic heart disease of [place] coronary artery without angina pectoris (5) Hypertension Qualifiers: Qualified Code(s): I10 - Essential (primary) hypertension
[2019-04-02 15:05] VITALS: BP 110/62
--- NOTE | 2019-04-02 16:36 | Discharge Summary ---
- NOTES TO OUTPATIENT PROVIDER Notes to Outpatient Provider: Will need follow-up with oncology for possible biopsy within one week possibly on Friday. Discussed with patient about fluid restriction of 1.5-2 L a day and also discuss to hold Plavix until biopsy. I asked to hold antihypertensive medication until PCP follow-up within one week and will need f/u BMP. Orders not resulted at time of discharge: Pending orders 03/31/19 13:08 Culture,Blood [BC] Routine 04/01/19 16:16 Mycoplasma pneumoniae IgG IgM Routine 04/02/19 04:00 Osmolality,Urine [UCHEM] AM 0400 Sodium, Urine [UCHEM] AM 0400 Date of Encounter: 04/02/19 Time of Encounter: 16:31 - Discharge Diagnosis (1) Hypo-osmolality and hyponatremia Priority: Primary Status: Acute (2) Lung mass Priority: Primary Status: Acute (3) Community acquired pneumonia Priority: Primary Status: Acute Qualifiers: Qualified Code(s): J18.9 - Pneumonia, unspecified organism (4) Coronary artery disease Priority: Secondary Status: Acute Qualifiers: Qualified Code(s): I25.10 - Atherosclerotic heart disease of [place] coronary artery without angina pectoris (5) Hypertension Priority: Secondary Status: Acute Qualifiers: Qualified Code(s): I10 - Essential (primary) hypertension (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 Butterfield is a 88 year old male with PMHx of HTN, CAD, HLD came with cough and sputum production found to have community acquired pneumonia on CXR. Patient also had CT chest which showed lung mass and also had hyponatremia. Patient urine osmolality was elevated indicating SIADH. Patient had oncology evaluation and was arranged to have biopsy after off of plavix for 5 days. He is otherwise stable to be discharge to finish outpatient antibiotic and f/u for lung biopsy via oncology. He is ask to restrict fluid intake to 1.5-2 L. His antihypertensives and plavix will be held as well till PCP follow up. Patient is awaiting f/u discussion with oncology today after which he will be discharged. Discharge discussed with: patient, family, nurse, managing consultant - Time Spent with Patient Total time spent providing and/or coordinating discharge services: Time spent: Greater than 30 minutes (40) - Discharge Medications Prescriptions: New Amoxicillin/Clavulanate [Augmentin] 875 mg PO BIDWM 2 Days #4 tablet Continued Tamsulosin [Flomax] 0.4 mg PO DAILY Mirtazapine [Remeron] 15 mg PO DAILY Metoprolol Succinate [Toprol Xl] 12.5 mg PO DAILY LORazepam [Ativan] 1 mg PO BID PRN PRN Reason: Anxiety Levothyroxine Sodium 88 mcg PO QAM Finasteride [Proscar] 5 mg PO DAILY Atorvastatin [Lipitor] 40 mg PO QPM Discontinued Lisinopril [Zestril] 5 mg PO DAILY Isosorbide MONOnitrate (24 HR) [Imdur] 30 mg PO QAM Clopidogrel [Plavix] 75 mg PO DAILY Chlorthalidone 25 mg PO DAILY Home Medications: Atorvastatin [Lipitor] 40 mg PO QPM 03/31/19 [History] Finasteride [Proscar] 5 mg PO DAILY 03/31/19 [History] LORazepam [Ativan] 1 mg PO BID PRN 03/31/19 [History] Levothyroxine Sodium 88 mcg PO QAM 03/31/19 [History] Metoprolol Succinate [Toprol Xl] 12.5 mg PO DAILY 03/31/19 [History] Mirtazapine [Remeron] 15 mg PO DAILY 03/31/19 [History] Tamsulosin [Flomax] 0.4 mg PO DAILY 03/31/19 [History] Amoxicillin/Clavulanate [Augmentin] 875 mg PO BIDWM 2 Days #4 tablet 04/02/19 [Rx] Allergies/Adverse Reactions: Allergy/AdvReac Type Severity Reaction Status Date / Time No Known Allergies Allergy Verified 03/31/19 14:13 Date of admission: 03/31/19 14:27 Primary care physician: Leonid Hernandez Consults: 03/31/19 11:34 Consult to Oncology [CONS] Stat Consulting Provider: [facility] Reason for Consult: Spiculated mass found on CT, cough, hyponatremia, hypoosmolality. Spoke with Mamie Seth. Time Notified: 11:35 Call Completed: Yes 04/01/19 15:54 Consult to Physical Therapy [CONS] Routine Comment: Evaluate, develop and implement POC Reason for Consult: Assess for ability to return home vs rehab Does patient have active BEDREST order?: No Is patient medically & hemodynamically stable?: Yes Discharging clinician: Jim Preston - Constitutional Vitals: Temp Pulse Resp BP Pulse Ox 98.2 F 89 16 110/62 96 04/02/19 15:04 04/02/19 15:04 04/02/19 15:04 04/02/19 15:04 04/02/19 15:04 Exam: General: In no acute distress. Respiratory exam: CTAB. no accessory muscle use, occasional rhonchi Cardiovascular exam: RRR, +S1, +S2. no murmur, gallop, rubs. GI/Abdominal exam: Non-tender, Non-distended, normal bowel sounds, soft, no peritoneal signs. Extremities exam: no pedal edema, pulses palpable in b/l lower extremities. no calf tenderness Neurological exam: CN II-XII intact, AO X3, no focal deficits. Skin exam: No skin rash. - Patient Status Disposition: Home Health Service Condition: Fair - Discharge Instructions Instructions: Amoxicillin/Clavulanate Potassium (By mouth), Community-acquired Pneumonia (DC) Follow Up With: Leonid Hernandez DO [Primary Care Provider] - - Diet and Activity Activity: as per physical therapy
--- NOTE | 2019-04-02 16:40 | Physician Discharge Referral ---
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 For more information, call the [facility] Quit Line at 5-273-OUFP-NOW. - Services Needed Following services are medically necessary services: Nursing, Physical Therapy, Occupational Therapy - Transfer Medications Prescriptions: Amoxicillin/Clavulanate [Augmentin] 875 mg PO BIDWM 2 Days #4 tablet Home Medications: Atorvastatin [Lipitor] 40 mg PO QPM 03/31/19 [History] Finasteride [Proscar] 5 mg PO DAILY 03/31/19 [History] LORazepam [Ativan] 1 mg PO BID PRN 03/31/19 [History] Levothyroxine Sodium 88 mcg PO QAM 03/31/19 [History] Metoprolol Succinate [Toprol Xl] 12.5 mg PO DAILY 03/31/19 [History] Mirtazapine [Remeron] 15 mg PO DAILY 03/31/19 [History] Tamsulosin [Flomax] 0.4 mg PO DAILY 03/31/19 [History] Amoxicillin/Clavulanate [Augmentin] 875 mg PO BIDWM 2 Days #4 tablet 04/02/19 [Rx] Allergies/Adverse Reactions: Allergy/AdvReac Type Severity Reaction Status Date / Time No Known Allergies Allergy Verified 03/31/19 14:13 Certification: Further, I certify that my clinical findings support that this patient is homebound (i.e. absences from home require considerable and taxing effort and are for medical reasons or holiness services or infrequently or short duration when for other reasons) because: Homebound Reason: Patient requires assistance of a person or device to safely leave home Attestation: My signature below is to certify that this patient is under my care and that I, or nurse practitioner, or a physician's butcher's assistant working with me, has a [id number] encounter with this patient.
[2019-04-04 08:15] LABS: Mycoplasma pneumoniae IgG 0.28 U/L (<=0.09)
== END 2019-04-02 19:10 | disposition home health service (06) | DRG 194 ==
LOC: EMEROOARM 09:11 → SUATTDRO 14:27 → 2NENU 14:27
PROVIDERS: ADMIT Student in an Organized Health Care Education/Training Program; ATTEND Internal Medicine